=== PATIENT | male | born 1985 | race Caucasian/White ===

== ENCOUNTER 2023-02-24 21:40 | Emergency (ER) | payer OTHER ==
[2023-02-24 23:59] VITALS: TEMP 97.9
[2023-02-25] MEDS ORDERED: TORAdol 30 mg Injection IM ONE (00:26)
[2023-02-25] MEDS ORDERED: TORAdol 30 mg Injection ONE (00:57)
--- NOTE | 2023-02-25 01:16 | ERPHSYRPT ---
- History of Present Illness Time Seen by Provider: 02/25/23 01:08 Exam Limitations: no limitations Patient Subjective Stated Complaint: fell on Thursday night onto to tripod chair Triage Nursing Assessment: pt ambulated into ER without diff. Pt c/o left sided rib pain. Pt tripped over a case of water on Thursday night and fell onto a tripod chair. Left side of chest under nipple is bruised with an abrasion area noted. No bleeding. Pt c/o pain when taking a deep breath. Lungs clear ant/post bilat. Physician History: Patient 37-year-old male presents to our ED for evaluation of chest wall pain. Patient states he tripped onto a tripod chair. The chair injured patient's left chest wall at the nipple line just inferior to the areola. Patient has been having significant pain over the past couple days since the fall. Patient worried about a rib fracture. No other complaints. No shortness of breath. No diaphoresis. Symptoms are mild to moderate in intensity. Patient voices no other complaints or concerns at this time. Portions of this note were created with voice recognition technology. There may be grammatical, spelling, punctuation or sound alike errors Timing/Duration: day(s) (3 days ago) Severity: moderate Modifying Factors: Improves With: movement (Movement and palpation) Associated Symptoms: denies symptoms Allergies/Adverse Reactions: latex Adverse Reaction (Severe, Verified 02/25/23 00:06) Swelling of Eyelids Home Medications: Famotidine 20 mg PO DAILY 02/25/23 [History] Hx Tetanus, Diphtheria Vaccination/Date Given: Yes Hx Influenza Vaccination/Date Given: No Hx Pneumococcal Vaccination/Date Given: No Travel Risk - International Travel Have you traveled outside of the country in past 3 weeks: No - Coronavirus Screening Are you exhibiting any of the following symptoms?: No Close contact with a COVID-19 positive Pt in past 14-21 Days: No - Vaccine Status Have you recieved a Covid-19 vaccination: Yes Electrical Cad Designer: Unknown - Vaccination Dates Dates if Unknown: . - Review of Systems Constitutional: No Symptoms, No Fever, No Chills Eyes: No Symptoms Ears, Nose, & Throat: No Symptoms Respiratory: No Symptoms, No Cough, No Dyspnea Cardiac: No Symptoms, No Chest Pain, No Edema, No Syncope Abdominal/Gastrointestinal: No Symptoms, No Abdominal Pain, No Nausea, No Vomiting, No Diarrhea Genitourinary Symptoms: No Symptoms, No Dysuria Musculoskeletal: No Symptoms, No Back Pain, No Neck Pain Skin: No Symptoms, No Rash Neurological: No Symptoms, No Dizziness, No Focal Weakness, No Sensory Changes Psychological: No Symptoms Endocrine: No Symptoms Hematologic/Lymphatic: No Symptoms Immunological/Allergic: No Symptoms All Other Systems: Reviewed and Negative - Past Medical History Pertinent Past Medical History: Yes Neurological History: No Pertinent History ENT History: No Pertinent History Cardiac History: No Pertinent History Respiratory History: No Pertinent History Endocrine Medical History: No Pertinent History Musculoskeletal History: Fractures GI Medical History: GERD History: No Pertinent History Psycho-Social History: No Pertinent History Male Reproductive Disorders: No Pertinent History - Past Surgical History Past Surgical History: Yes Male Surgical History: Vasectomy - Social History Smoking Status: Current every day smoker How long have you smoked: 25 yrs Exposure to second hand smoke: Yes Drug Use: none Patient Lives Alone: No - Nursing Vital Signs Nursing Vital Signs: Initial Vital Signs Temperature 97.9 F 02/24/23 23:57 Pulse Rate 87 02/24/23 23:57 Respiratory Rate 20 02/24/23 23:57 Blood Pressure 129/86 02/24/23 23:57 O2 Sat by Pulse Oximetry 100 02/24/23 23:57 Pain Scale Pain Intensity 7 - Physical Exam General Appearance: no apparent distress, alert Eye Exam: PERRL/EOMI, eyes nml inspection Ears, Nose, Throat Exam: normal ENT inspection, pharynx normal, moist mucous membranes Neck Exam: normal inspection, non-tender, supple, full range of motion Respiratory Exam: normal breath sounds, lungs clear, No respiratory distress Cardiovascular Exam: regular rate/rhythm, normal heart sounds, normal peripheral pulses, other (Contusion to the left chest wall just inferior to the areola) Gastrointestinal/Abdomen Exam: soft, normal bowel sounds, No tenderness, No mass Back Exam: normal inspection, normal range of motion, No CVA tenderness, No vertebral tenderness Extremity Exam: normal inspection, normal range of motion, pelvis stable Neurologic Exam: alert, oriented x 3, cooperative, normal mood/affect, nml cerebellar function, nml station & gait, sensation nml, No motor deficits Skin Exam: normal color, warm, dry, No rash Lymphatic Exam: No adenopathy SpO2 Interpretation: normal SpO2: 100 O2 Delivery: Room Air - Course Nursing assessment & vital signs reviewed: Yes - CT Exams Chest CT Interpretation: Tele-radiologist Report (Calcified lymph node, lung nodule, enlarged right axillary lymph node no pneumothorax. No rib fracture) Ordered Tests: Active Orders 24 hr Category Date Time Status CHEST WITHOUT CONTRAST [CT] Stat Exams 02/25/23 00:25 Completed Medication Summary Discontinued Medications Generic Name Dose Route Start Last Admin Trade Name Sarbjit PRN Reason Stop Dose Admin Ketorolac Tromethamine 60 mg 02/25/23 00:26 02/25/23 00:58 Ketorolac Tromethamine 30 Mg/Ml Inj IM 02/25/23 00:27 60 mg STAT ONE Administration Ketorolac Tromethamine Confirm 02/25/23 00:57 Ketorolac Tromethamine 30 Mg/Ml Inj Administered 02/25/23 00:58 Dose 60 mg .ROUTE .[facility]-MED ONE - Progress Progress: improved Progress Note: Patient is a 37-year-old male presents to our ED for evaluation of a chest wall contusion. Patient concern for possible rib fracture. CT negative for rib fractures no pneumothorax. Incidental calcified lymph node lung granuloma and enlarged right axillary lymph node. Patient resting comfortably. Pain well controlled. Will discharge home. He voices no other complaints or concerns at this time. Patient agrees to follow-up with his primary care doctor within 48 hours for reevaluation. Portions of this note were created with voice recognition technology. There may be grammatical, spelling, punctuation or sound alike errors Complexity of problems addressed is low acute uncomplicated Complexity of data reviewed and analyzed is moderate. CT scan ordered. Results reviewed and clinically correlated with history and physical examination. Risk of complication and or risk morbidity/mortality of patient management is moderate. Prescription for Toradol forwarded to patient's pharmacy. Patient discharged home. He agrees to follow-up with primary care doctor within 48 hours for reevaluation. Vital stable. No social determinants of health pre sent to impede follow-up. Time spent to discharge patient approximately 15 minutes. Plan of care established for shared decision making. Portions of this note were created with voice recognition technology. There may be grammatical, spelling, punctuation or sound alike errors 02/25/23 02:30 Counseled pt/family regarding: diagnosis, need for follow-up, rad results - Departure Departure Disposition: Home Clinical Impression: Chest wall contusion, Calcified lung nodule, Enlarged right axillary lymph node, Calcified lymph nodes Condition: Stable Critical Care Time: No Referrals: DOCTOR,NO FAMILY [Primary Care Provider] - Follow up/PCP as directed JIMMIE CALIX MD [ACTIVE STAFF] - Follow up/PCP as directed Additional Instructions: Discharge/Care Plan JILLIAN IGLESIAS was seen on 02/25/23 in the Emergency Room. The patient was counseled regarding Diagnosis,Lab results, Imaging studies, need for follow up and when to return to the Emergency Room. Prescriptions given: Discharge Note I have spoken with the patient and/or caregivers. I have explained the patient's condition, diagnosis and treatment plan based on the information available to me at this time. I have answered the patient's and/or caregiver's questions and addressed any concerns. The patient and/or caregivers have as good understanding of the patient's diagnosis, condition and treatment plan as can be expected at this point. The vital signs have been stable. The patient's condition is stable and appropriate for discharge from the emergency department. The patient will pursue further outpatient evaluation with the primary care physician or other designated or consulting physician as outlined in the discharge instructions. The patient and/or caregivers are agreeable to this plan of care and follow-up instructions have been explained in detail. The patient and/or caregivers have received these instruction. The patient/and or caregivers are aware that any significant change in condition or worsening of symptoms should prompt an immediate return to this or the closest emergency department or call 911. Prescriptions: Ketorolac Trometh 10 mg Tab [TORAdol 10 MG TABLET] 10 mg PO TID 5 Days #15 tablet
--- NOTE | 2023-02-25 02:17 | XRAY ---
CLINICAL HISTORY:left chest wall pain, trauma COMPARISON:None TECHNIQUE:Contiguous 3.[address] images of the chest were acquired without the administration of intravenous contrast. Coronal and sagittal reconstructions were obtained. DLP : 327mGy*cm, CTDI Vol: 8.98mGy. FINDINGS: No acute bony or soft tissue pathology seen. No hydrothorax or pneumothorax. Few small calcified foci noted in the mediastinum the largest one is measuring about 1.2 x 1.0 cm seen in the right hilar region suggestive of calcified lymph nodes. Few scattered calcified nodules or nodules with internal calcification are seen in both lungs. There are at least 3 calcified nodules are seen involving right middle and and two at left upper and lower lobes, the largest one middle right lobe measures 6 x 4 mm. Others are less than 5 mm. The scanned pulmonary parenchyma shows no definite consolidation / collapse. No free or encysted pleural effusion. Heart size is normal and there is no pericardial effusion. There is no definite mass lesion in the chest wall. Upper abdomen appear unremarkable Few enlarged right axillary lymph nodes seen, the largest one measures 1.2 x 0.5 cm. IMPRESSION: No acute bony or soft tissue pathology seen. No hydrothorax or pneumothorax. No definite consolidation / collapse. Calcified mediastinal lymphadenopathy. Bilateral calcified pulmonary nodules Lung RADS -1. Enlarged right axillary lymph nodes. Electronically Signed by: Jesenia Beckwith MD. (02/25/2023 01:17:12 [facility]WYER)
[2023-02-25 02:19] VITALS: RESP 18
[2023-02-25 02:46] VITALS: BP 129/77; PULSE 86; O2SAT 97
== END 2023-02-25 02:41 | disposition home or self-care (01) ==
LOC: ED 21:40
DX: S20.212A Contusion of left front wall of thorax, initial encounter (principal); W01.190A Fall on same level from slipping, tripping and stumbling with subsequent striking against furniture, initial encounter; R91.1 Solitary pulmonary nodule; R59.0 Localized enlarged lymph nodes; I89.8 Other specified noninfective disorders of lymphatic vessels and lymph nodes; Z72.0 Tobacco use
CPT/HCPCS: 71250; 96372; 99283; J1885

== ENCOUNTER 2023-03-03 02:29 | Emergency (ER) | payer OTHER ==
[2023-03-03 02:42] VITALS: TEMP 97.5; O2SAT 99
[2023-03-03] MEDS ORDERED: BABY ASPIRIN 81 MG CHEW PO ONE (02:57)
[2023-03-03] MEDS ORDERED: SUBLIMAZE 100 MCG/2 ML IV ONE (02:57)
[2023-03-03] MEDS ORDERED: BENADRYL 50 MG/ML IV ONE (02:57)
--- NOTE | 2023-03-03 02:59 | ERPHSYRPT ---
- History of Present Illness Time Seen by Provider: 03/03/23 02:40 Historian: patient Exam Limitations: no limitations Patient Subjective Stated Complaint: pain on left lower rib after sneezing Triage Nursing Assessment: pt ambulated into ER without diff, at bedside. Pt c/o left lower rib pain. Pt was seen in this ER on 02/25/23 after falling over a case of water and landing on a tripod stool. Pt had pain in the exact same area on that visit. However pt sneezed this evening at work around 10pm, and states, "the pain has been worse in this spot ever since I sneezed". No bruising noted. Area is tender to touch, small knot area noted under left nipple area. Physician History: Patient has had left anterior chest pain since having a mechanical fall 1 week ago, and it was exacerbated 5 hours prior to come to the emergency room after he sneezed. He has been having severe pain to the left anterior aspect of his chest since that time. He took an oral Toradol pill without any relief of his symptoms. Timing/Duration: week(s) (1), intermittent, worse (over the past 5 hours) Quality: stabbing Location: other (Left anterior chest) Chest Pain Radiation: no radiation Severity of Pain-Max: severe Severity of Pain-Current: severe Modifying Factors: Worsens With: breathing, coughing, movement, change in position Associated Symptoms: No nausea, No vomiting, No palpitations, No heartburn, No abdominal pain, No shortness of breath, No cough, No hurts to breathe, No diaphoresis, No chills, No fever, No fatigue, No weakness, No swelling/lump in chest, No syncope, No rash, No headache, No dizziness, No edema, No back pain Prior Chest Pain/Cardiac Workup: recently seen/treated (1 week ago after having a fall) Nitro Today/Relief: no nitro taken today Aspirin Treatment Today: no aspirin today Allergies/Adverse Reactions: latex Adverse Reaction (Severe, Verified 03/03/23 02:46) Swelling of Eyelids Home Medications: Famotidine 20 mg PO DAILY 02/25/23 [History] Hx Tetanus, Diphtheria Vaccination/Date Given: Yes Hx Influenza Vaccination/Date Given: No Hx Pneumococcal Vaccination/Date Given: No Travel Risk - International Travel Have you traveled outside of the country in past 3 weeks: No - Coronavirus Screening Are you exhibiting any of the following symptoms?: No Close contact with a COVID-19 positive Pt in past 14-21 Days: No - Vaccine Status Have you recieved a Covid-19 vaccination: Yes Ammonium Nitrate Neutralizer: Unknown - Vaccination Dates Dates if Unknown: . - Review of Systems Constitutional: No Fever, No Chills Eyes: No Symptoms Ears, Nose, & Throat: No Symptoms Respiratory: No Cough, No Dyspnea Cardiac: Chest Pain, No Edema, No Syncope Abdominal/Gastrointestinal: No Abdominal Pain, No Nausea, No Vomiting, No Diarrhea Genitourinary Symptoms: No Dysuria Musculoskeletal: No Back Pain, No Neck Pain Skin: No Rash Neurological: No Dizziness, No Focal Weakness, No Sensory Changes Psychological: No Symptoms Endocrine: No Symptoms All Other Systems: Reviewed and Negative - Past Medical History Pertinent Past Medical History: Yes Neurological History: No Pertinent History ENT History: No Pertinent History Cardiac History: No Pertinent History Respiratory History: No Pertinent History Endocrine Medical History: No Pertinent History Musculoskeletal History: Fractures GI Medical History: GERD History: No Pertinent History Psycho-Social History: No Pertinent History Male Reproductive Disorders: No Pertinent History - Past Surgical History Past Surgical History: Yes Male Surgical History: Vasectomy - Social History Smoking Status: Current every day smoker How long have you smoked: 25 yrs Exposure to second hand smoke: Yes Drug Use: none Patient Lives Alone: No - Nursing Vital Signs Nursing Vital Signs: Initial Vital Signs Temperature 97.5 F 03/03/23 02:38 Pulse Rate 101 H 03/03/23 02:38 Respiratory Rate 18 03/03/23 02:38 Blood Pressure 114/80 03/03/23 02:38 O2 Sat by Pulse Oximetry 99 03/03/23 02:38 Pain Scale Pain Intensity 8 - Physical Exam General Appearance: no apparent distress, alert Eye Exam: PERRL/EOMI, eyes nml inspection Ears, Nose, Throat Exam: normal ENT inspection, pharynx normal, moist mucous membranes Neck Exam: normal inspection, non-tender, supple, full range of motion, No meningismus, No Brudzinski, No lymphadenopathy Respiratory Exam: normal breath sounds, chest tenderness (left anterior mid chest tenderness), lungs clear, airway intact, No respiratory distress, No accessory muscle use, No crackles/rales, No rhonchi, No wheezing, No stridor Cardiovascular Exam: regular rate/rhythm, normal heart sounds Gastrointestinal/Abdomen Exam: soft, No tenderness, No mass, No guarding, No rebound Back Exam: normal inspection, No CVA tenderness, No vertebral tenderness Extremity Exam: normal inspection, normal range of motion, pelvis stable Neurologic Exam: alert, oriented x 3, cooperative, normal mood/affect, sensation nml, No motor deficits Skin Exam: normal color, warm, dry SpO2 Interpretation: normal SpO2: 99 O2 Delivery: Room Air - Course Nursing assessment & vital signs reviewed: Yes EKG Interpreted by Me: RATE (76), Sinus Rhythm, NORMAL AXIS, NORMAL INTERVALS, NORMAL QRS, NORMAL ST-T (Some nonspecific flattening of the T waves in the anterolateral leads), Other (Negative previous EKG for comparison) - Radiology Exams Chest X-ray Interpretation: Interpreted by me, Reviewed by me, Negative, No Fracture, No Pneumothorax, Nml Heart Size, Nml Mediastinum Ordered Tests: Active Orders 24 hr Category Date Time Status Power Bender Operator STAT Care 03/03/23 02:58 Active EKG-ER Only STAT Care 03/03/23 02:57 Active IV Insertion STAT Care 03/03/23 02:57 Active CHEST 1 VIEW (PORTABLE) Stat Exams 03/03/23 02:57 Taken CBC W DIFF Stat Lab 03/03/23 03:10 Completed CK-Creatinine Phosphokinase Stat Lab 03/03/23 03:10 Completed CMP Stat Lab 03/03/23 03:10 Completed LIPASE Stat Lab 03/03/23 03:10 Completed PROTIME WITH INR Stat Lab 03/03/23 03:10 Completed TROPONIN Q4H Lab 03/03/23 03:10 Completed TROPONIN Q4H Lab 03/03/23 07:00 Ordered TROPONIN Q4H Lab 03/03/23 11:00 Ordered Medication Summary Discontinued Medications Generic Name Dose Route Start Last Admin Trade Name Freq PRN Reason Stop Dose Admin Aspirin 324 mg 03/03/23 02:57 03/03/23 03:08 Aspirin 81 Mg Tab.Chew PO 03/03/23 02:58 324 mg STAT ONE Administration Diphenhydramine HCl 25 mg 03/03/23 02:57 03/03/23 03:08 Diphenhydramine Hcl 50 Mg/Ml Vial IV 03/03/23 02:58 25 mg STAT ONE Administration Diphenhydramine HCl Confirm 03/03/23 03:02 Diphenhydramine Hcl 50 Mg/Ml Vial Administered 03/03/23 03:03 Dose 50 mg .ROUTE .STK-MED ONE Fentanyl Citrate 50 mcg 03/03/23 02:57 03/03/23 03:09 Fentanyl Citrate 100 Mcg/2 Ml* Vial IV 03/03/23 02:58 50 mcg STAT ONE Administration Fentanyl Citrate Confirm 03/03/23 03:03 Fentanyl Citrate 100 Mcg/2 Ml* Vial Administered 03/03/23 03:04 Dose 100 mcg .ROUTE .STK-MED ONE Lab/Rad Data: Laboratory Result Diagrams 03/03/23 03:10 03/03/23 03:10 Laboratory Results 03/03/23 03/03/23 03/03/23 Range/Units 03:10 03:10 03:10 WBC (4.0-10.5) x10^3/uL RBC (4.1-5.6) x10^6/uL Hgb (12.5-18.0) g/dL Hct (42-50) % MCV (78-100) fL MCH (26-32) pg MCHC (32-36) g/dL RDW (11.5-14.0) % Plt Count (150-450) x10^3/uL MPV (7.5-11.0) fL Gran % (36.0-66.0) % Immature Gran % (Auto) (0.00-0.4) % Nucleat RBC Rel Count (0.00-0.1) % Eos # (Auto) (0-0.5) x10^3/uL Immature Gran # (Auto) (0.00-0.03) x10^3u/L Absolute Lymphs (auto) (1.0-4.6) x10^3/uL Absolute Monos (auto) (0.0-1.3) x10^3/uL Absolute Nucleated RBC (0.00-0.01) x10^3u/L Lymphocytes % (24.0-44.0) % Monocytes % (0.0-12.0) % Eosinophils % (0.00-5.0) % Basophils % (0.0-0.4) % Absolute Granulocytes (1.4-6.9) x10^3/uL Basophils # (0-0.4) x10^3/uL PT 10.1 (9.4-12.5) SECONDS INR 0.92 (0.8-3.0) Sodium 137 (137-145) mmol/L Potassium 3.5 (3.5-5.1) mmol/L Chloride 100 (98-107) mmol/L Carbon Dioxide 24 (22-30) mmol/L Anion Gap 15.6 H (5-15) MEQ/L BUN 25 H (9-20) mg/dL Creatinine 1.17 (0.66-1.25) mg/dL Estimated GFR > 60.0 ML/MIN Glucose 125 H (74-106) mg/dL Calcium 8.8 (8.4-10.2) mg/dL Total Bilirubin 0.70 (0.2-1.3) mg/dL AST 33 (17-59) U/L ALT 47 (0-50) U/L Alkaline Phosphatase 61 (38-126) U/L Creatine Kinase 103 (55-170) U/L Troponin I < 0.012 (0.000-0.034) ng/mL Serum Total Protein 7.3 (6.3-8.2) g/dL Albumin 4.2 (3.5-5.0) g/dL Lipase 54 (23-300) U/L 03/03/23 Range/Units 03:10 WBC 10.1 (4.0-10.5) x10^3/uL RBC 4.88 (4.1-5.6) x10^6/uL Hgb 14.0 (12.5-18.0) g/dL Hct 41.6 L (42-50) % MCV 85.2 (78-100) fL MCH 28.7 (26-32) pg MCHC 33.7 (32-36) g/dL RDW 13.1 (11.5-14.0) % Plt Count 283 (150-450) x10^3/uL MPV 9.1 (7.5-11.0) fL Gran % 63.5 (36.0-66.0) % Immature Gran % (Auto) 0.3 (0.00-0.4) % Nucleat RBC Rel Count 0.0 (0.00-0.1) % Eos # (Auto) 0.39 (0-0.5) x10^3/uL Immature Gran # (Auto) 0.03 (0.00-0.03) x10^3u/L Absolute Lymphs (auto) 2.40 (1.0-4.6) x10^3/uL Absolute Monos (auto) 0.78 (0.0-1.3) x10^3/uL Absolute Nucleated RBC 0.00 (0.00-0.01) x10^3u/L Lymphocytes % 23.7 L (24.0-44.0) % Monocytes % 7.7 (0.0-12.0) % Eosinophils % 3.9 (0.00-5.0) % Basophils % 0.9 (0.0-0.4) % Absolute Granulocytes 6.42 (1.4-6.9) x10^3/uL Basophils # 0.09 (0-0.4) x10^3/uL PT (9.4-12.5) SECONDS INR (0.8-3.0) Sodium (137-145) mmol/L Potassium (3.5-5.1) mmol/L Chloride (98-107) mmol/L Carbon Dioxide (22-30) mmol/L Anion Gap (5-15) MEQ/L BUN (9-20) mg/dL Creatinine (0.66-1.25) mg/dL Estimated GFR ML/MIN Glucose (74-106) mg/dL Calcium (8.4-10.2) mg/dL Total Bilirubin (0.2-1.3) mg/dL AST (17-59) U/L ALT (0-50) U/L Alkaline Phosphatase (38-126) U/L Creatine Kinase (55-170) U/L Troponin I (0.000-0.034) ng/mL Serum Total Protein (6.3-8.2) g/dL Albumin (3.5-5.0) g/dL Lipase (23-300) U/L - Progress Progress: re-examined Air Movement: good Progress Note: 03/03/23 04:08 Patient's pain is much improved with no significant pain at this time and he does not request any other pain medication 03/03/23 04:14 Patient is a 37-year-old male comes in with left anterior mid chest pain without any mechanism of injury but did have an injury 6 days earlier and and was triggered with him sneezing earlier in the evening. Due to patient's presentation that was very consistent muscle skeletal, he did have secondary work-up including chest x-ray, EKG and lab work which were all negative for any acute abnormalities including any signs of pneumothorax or pneumonia, no signs any rib fractures, EKG was negative for any acute findings and troponin was negative. There is no signs any referred upper GI issues on examination or on his lab work, so patient was given pain control here in the emergency room which resolved his symptoms completely. Patient be sent home with short supply of Lodine to take twice daily as needed for pain as well as short supply of [place] for breakthrough pain and was given referral to primary care to follow-up with. Patient is return back to the nearest emergency room she has any fever, worsening chest pain, new dyspnea, new pleuritic type chest pain, new hemoptysis, hematemesis, new productive cough, new melena or hematochezia, new abdominal pain, new flank pain, new hematuria or any other concerning signs or symptoms that were not present at today's emergency room visit for immediate reevaluation in the nearest emergency department Blood Culture(s) Obtained: No Antibiotics given: No Counseled pt/family regarding: lab results, diagnosis, need for follow-up, rad results Medical Desision Making - External Record(s) Reviewed Records reviewed as a part of evaluation & management: Discharge Summary (Reviewed CT of the chest from 02/25/2023 that was negative for any fractures at that time, negative for pneumothorax, negative for any consolidation or any other abnormalities) - Diagnostic Testing Diagnostic test were ordered, analyzed, and reviewed by me: Yes Radiological Interpretation: Interpreted by me, Reviewed by me - Risk of complications Minimal Risk: Minimal risk of morbidity Low Risk: Low risk of morbidity from additional dx testing or treatment The pt has a mod risk of morbidity or mortality based on: Need for prescription drug management The pt has a high risk of morbidity or mortality based on: Drug therapy requiring intensive monitoring for toxicity - Departure Departure Disposition: Home Clinical Impression: Chest wall contusion Qualifiers: Encounter type: subsequent encounter Laterality: left Qualified Code(s): S20.212D - Contusion of left front wall of thorax, subsequent encounter Chest pain Qualifiers: Chest pain type: other chest pain Qualified Code(s): R07.89 - Other chest pain Condition: Good Critical Care Time: No Referrals: DOCTOR,NO FAMILY [Primary Care Provider] - Follow up/PCP as directed ELIECER BARNETT NP [NON-STAFF PHY W/O PRIVILEGES] - Follow Up with PCP/3 days Instructions: Chest Pain (DC), Bruised Rib (DC) Additional Instructions: Return back to the nearest emergency room if you have any fever, new productive cough, coughing up blood, new black or red stools, new abdominal pain, new back pain, new shortness of breath, new weakness in the arms or legs or any other concerning signs or symptoms that were not present at today's emergency room visit for immediate reevaluation in the nearest emergency department Forms: Work/School Release Form Prescriptions: Hydrocodone/Acetaminophen [Hydrocodone-Acetamin 5-325 mg] 1 each PO Q6HPRN PRN #10 tablet MDD 4 PRN Reason: Pain Etodolac 400 mg [Lodine 400 mg] 400 mg PO BID PRN PRN #20 tablet PRN Reason: Pain
[2023-03-03] MEDS ORDERED: BENADRYL 50 MG/ML ONE (03:02)
[2023-03-03] MEDS ORDERED: SUBLIMAZE 100 MCG/2 ML ONE (03:03)
[2023-03-03 03:13] LABS: Absolute Neutrophil Ct (ANC) 6.42 x10^3/uL (1.4-6.9); BASOPHIL % 0.9 % (0.0-0.4); Basophil (Absolute #) 0.09 x10^3/uL (0-0.4); Eosinophil % 3.9 % (0.00-5.0); Eosinophil (Absolute #) 0.39 x10^3/uL (0-0.5); Hematocrit 41.6 % (42-50); IMMATURE GRAN # 0.03 x10^3u/L (0.00-0.03); IMMATURE GRAN % 0.3 % (0.00-0.4); Lymphocytes % 23.7 % (24.0-44.0); Mean Cell Volume 85.2 fL (78-100); Mean Corpuscular Hemoglobin 28.7 pg (26-32); Mean Corpuscular Hgb Concent. 33.7 g/dL (32-36); Mean Platelet Volume 9.1 fL (7.5-11.0); Monocyte (Absolute #) 0.78 x10^3/uL (0.0-1.3); Monocytes % 7.7 % (0.0-12.0); Neutrophil % 63.5 % (36.0-66.0); Platelet Count 283 x10^3/uL (150-450); Red Blood Count 4.88 x10^6/uL (4.1-5.6); Red Cell Distribution Width 13.1 % (11.5-14.0); White Blood Count 10.1 x10^3/uL (4.0-10.5)
[2023-03-03 03:28] LABS: ALBUMIN 4.2 g/dL (3.5-5.0); ALKALINE PHOSPHATASE 61 U/L (38-126); ANION GAP 15.6 MEQ/L (5-15); BLOOD UREA NITROGEN 25 mg/dL (9-20); CHLORIDE 100 mmol/L (98-107); CK-Creatinine Phosphokinase 103 U/L (55-170); Calcium 8.8 mg/dL (8.4-10.2); Carbon Dioxide 24 mmol/L (22-30); Creatinine 1 1.17 mg/dL (0.66-1.25); EST GLOMERULAR FILTRATION RATE > 60.0 ML/MIN; Glucose 125 mg/dL (74-106); INR 0.92 (0.8-3.0); LIPASE 54 U/L (23-300); PROTIME 10.1 SECONDS (9.4-12.5); Potassium 3.5 mmol/L (3.5-5.1); SGOT/AST 33 U/L (17-59); SGPT/ALT 47 U/L (0-50); SODIUM 137 mmol/L (137-145); Total Protein 7.3 g/dL (6.3-8.2)
[2023-03-03 04:21] VITALS: BP 103/62; PULSE 89; RESP 14
--- NOTE | 2023-03-03 08:42 | XRAY ---
Indication: Left chest pain following fall 2 weeks ago. Comparison: December 27, 2020 Portable chest less inflated and clear again with a few incidental tiny calcified granulomas. Heart not enlarged. Bony thorax intact. No new/acute findings.
== END 2023-03-03 04:22 | disposition home or self-care (01) ==
LOC: ED 02:29
DX: S20.212D Contusion of left front wall of thorax, subsequent encounter (principal); W19.XXXD Unspecified fall, subsequent encounter; R07.89 Other chest pain; Z72.0 Tobacco use
CPT/HCPCS: 36000; 36415; 71045; 80053; 82550; 83690; 84484; 85025; 85610; 93005; 93041; 96374; 96375; 99284; J1200; J3010; A9270-GY